=== PATIENT | female | born 1955 | race Caucasian/White ===

== ENCOUNTER → 2023-10-03 10:44 | Outpatient (REF) | payer MEDICARE, OTHER, SELFPAY ==
[2023-10-03 12:53] LABS: C-Reactive Protein < 5.00 mg/L (0.0-10.00)
[2023-10-03 13:12] LABS: Erythrocyte Sed Rate 8 mm/hour (0-20)
[2023-10-03 13:35] LABS: Rheumatoid Agglutinin Less Than 10 IU (<10 IU)
== END ==
LOC: REG 10:44
PROVIDERS: ATTENDING PHYSICIAN Internal Medicine; FAMILY PHYSICIAN Family Medicine
DX: M25.50 Pain in unspecified joint (principal)
CPT/HCPCS: 36415; 73130; 85652; 86140; 86430

== ENCOUNTER → 2024-02-03 09:54 | Outpatient (REF) | payer MEDICARE, OTHER, SELFPAY | LOC: HWRAD 09:54 | PROVIDERS: ATTENDING PHYSICIAN Physician Assistant Medical | DX: F17.210 Nicotine dependence, cigarettes, uncomplicated (principal) | CPT/HCPCS: 71271 ==

== ENCOUNTER → 2024-02-29 13:03 | Outpatient (REF) | payer MEDICARE, OTHER, SELFPAY | LOC: WDC 13:03 | PROVIDERS: ATTENDING PHYSICIAN Family Medicine | DX: Z12.31 Encounter for screening mammogram for malignant neoplasm of breast (principal) | CPT/HCPCS: 77063; 77067 ==